=== PATIENT | female | born 1970 | race African-American/Black ===

== ENCOUNTER 2017-11-22 12:16 | Emergency (ER) | payer BC, OTHER ==
[2017-11-22 12:26] VITALS: BP 135/73; PULSE 76; TEMP 98.1; BMI 29.2
[2017-11-22] MEDS ORDERED: ACETAMINOPHEN 1000 MG/100 ML VIAL (NON FORMULARY) IVPB ONE (12:49)
[2017-11-22] MEDS ORDERED: SODIUM CHLORIDE 0.9% 1000 ML INFUS.BAG IV ONE (12:49)
[2017-11-22] MEDS ORDERED: ACETAMINOPHEN INJECTION 100 ML IVPB ONE (12:59)
--- NOTE | 2017-11-22 12:59 | PDOC ---
History of Present Illness - General Chief Complaint: Pain, Acute Stated Complaint: POST OPERATIVE PAIN Time Seen by Provider: 11/22/17 12:20 History Source: Patient Exam Limitations: No Limitations - History of Present Illness Initial Comments: 11/22/17 13:00 47F with no pmh s/p buttock implant surgery, tummy tuck and liposuction [address] George Damon at presents to the ED with increasing abdominal pain since this morning. Took two percocet for pain this morning. Claims that she hasn't had a bowel movement since the operation. No fever, no nausea, no vomiting. Feels sad about the whole situation. No intention of self harm or to others. Past History - Past Medical History Allergies/Adverse Reactions: Allergies Allergy/AdvReac Type Severity Reaction Status Date / Time No Known Allergies Allergy Verified 11/22/17 12:21 Home Medications: Ambulatory Orders Diphenhydramine [Benadryl -] 50 mg PO DAILY PRN #20 capsule 11/22/17 Docusate Sodium [Colace] 100 mg PO BID #30 capsule 11/22/17 Omeprazole 20 mg PO DAILY 11/22/17 Omeprazole 20 mg PO DAILY #20 capsule. 11/22/17 Oxycodone HCl/Acetaminophen [Percocet 5-325 mg Tablet] 1 - 2 tab PO Q4H COPD: No GI Disorders: Yes (GERD) Disorders: Yes (kidney stones) Other medical history: sesonal allergies - Surgical History Abdominal Surgery: Yes (Tummy Tuck) - Immunization History Immunization Up to Date: No - Suicide/Smoking/Psychosocial Hx Smoking History: Never smoked Hx Alcohol Use: No Drug/Substance Use Hx: No Substance Use Type: None Review of Systems - Review of Systems Able to Perform ROS?: Yes Is the patient limited Kyrgyz proficient: No Constitutional: No: Symptoms Reported, See HPI, Chills, Loss of Appetite HEENTM: No: Symptoms Reported Respiratory: No: Symptoms reported Cardiac (ROS): No: Symptoms Reported ABD/GI: Yes: Abdominal Distended, Constipated : No: Symptoms Reported Musculoskeletal: No: Symptoms Reported Integumentary: No: Symptoms Reported Neurological: No: Symptoms reported All Other Systems: Reviewed and Negative *Physical Exam - Vital Signs Last Vital Signs Temp Pulse Resp BP Pulse Ox 98.1 F 76 17 135/73 98 11/22/17 12:23 11/22/17 12:23 11/22/17 12:23 11/22/17 12:23 11/22/17 12:23 - Physical Exam General Appearance: Yes: Nourished, Appropriately Dressed, Mild Distress HEENT: positive: EOMI, YOLIS, Normal ENT Inspection Respiratory/Chest: positive: Lungs Clear, Normal Breath Sounds. negative: Chest Tender, Respiratory Distress Cardiovascular: positive: Regular Rhythm, Regular Rate, S1, S2 Gastrointestinal/Abdominal: positive: Normal Bowel Sounds, Protuberent, Distended (and warm to the touch. Surgical scar well healed. 2 fluid collection bulbs half full of serosanguinous fluids. ) Musculoskeletal: positive: Normal Inspection. negative: CVA Tenderness Extremity: positive: Normal Capillary Refill, Normal Inspection, Normal Range of Motion Integumentary: positive: Normal Color, Dry, Warm Neurologic: positive: Fully Oriented, Alert, Normal Mood/Affect, Normal Response ED Treatment Course - LABORATORY CBC & Chemistry Diagram: 11/22/17 12:50 11/22/17 12:50 *DC/Admit/Observation/Transfer Diagnosis at time of Disposition: Post-operative pain, Constipation - Discharge Dispostion Disposition: HOME Condition at time of disposition: Improved Decision to Admit order: No - Referrals - Patient Instructions Printed Discharge Instructions: DI for Moderate Sedation Additional Instructions: Come back to the ER for any new, worsening or concerning symptoms. Follow up with your appointment on Saturday with your PLastic Surgeon Dr. BRASWELL - Post Discharge Activity
[2017-11-22 13:00] LABS: BASO % 1.1 % (0-2.0); EOS % 3.4 % (0-4.5); HEMATOCRIT 26.5 % (32.4-45.2); HEMOGLOBIN 8.6 GM/dL (10.7-15.3); LYMPH % 20.6 % (8-40); MCH 25.6 pg (25.7-33.7); MCHC 32.3 g/dl (32.0-36.0); MEAN CELL VOLUME 79.2 fl (80-96); MEAN PLT VOLUME 9.1 fl (7.5-11.1); MONO % 7.5 % (3.8-10.2); NEUT % 67.4 % (42.8-82.8); PLATELET COUNT 215 K/MM3 (134-434); RBC 3.35 M/mm3 (3.60-5.2); WHITE BLOOD COUNT 8.3 K/mm3 (4.0-10.0)
[2017-11-22 13:05] LABS: VENOUS PC02 41.3 mmHg (38-52); VENOUS PH 7.42 (7.32-7.42); VENOUS PO2 29.3 mmHg (28-48)
[2017-11-22 13:24] LABS: ANION GAP 7 (8-16); BLOOD UREA NITROGEN 8 mg/dL (7-18); CALCIUM 8.2 mg/dL (8.5-10.1); CHLORIDE 102 mmol/L (98-107); CO2 29 mmol/L (21-32); CREATININE 0.6 mg/dL (0.55-1.02); GLUCOSE,RANDOM 96 mg/dL (74-106); POTASSIUM 3.5 mmol/L (3.5-5.1); SODIUM 138 mmol/L (136-145)
[2017-11-22 14:48] LABS: URINE APPEARANCE CLEAR; URINE BILIRUBIN NEGATIVE (<2.0 mg/dL); URINE COLOR COLORLESS; URINE GLUCOSE (UA) NEGATIVE (NEGATIVE); URINE KETONE 1+ (NEGATIVE); URINE LEUK ESTERASE NEGATIVE (NEGATIVE); URINE NITRITE NEGATIVE (NEGATIVE); URINE PROTEIN NEGATIVE (NEGATIVE); URINE UROBILINOGEN NEGATIVE mg/dL (0.2-1.0)
[2017-11-22] MEDS ORDERED: MAGNESIUM CITRATE 300 ML BOTTLE PO ONE (14:54)
[2017-11-22 14:55] LABS: EPI CELLS RARE /HPF (FEW)
[2017-11-22] MEDS ORDERED: MINERAL OIL ENEMA 133 ML ENEMA PR ONE (14:55)
[2017-11-22] MEDS ORDERED: SODIUM PHOSPHATE/NA BIPHOS 133 ML ENEMA PR ONE (14:59)
[2017-11-22] MEDS ORDERED: MAGNESIUM CITRATE 300 ML BOTTLE ONE (15:04)
--- NOTE | 2017-11-22 16:36 | PDOC ---
Attending Attestation - HPI HPI: 11/22/17 16:38 The patient is a 47 year old Female with no significant past medical history who presents to the emergency department s/p buttock implant surgery, tummy tuck and liposuction [address] George Damon at [facility] with increasing abdominal pain this morning. She reportedly took two percocet for pain this morning with little to no relief. She states she has not had a BM since her surgery. The patient denies chest pain, shortness of breath, headache and dizziness. The patient denies fever, chills, nausea, vomit, diarrhea and constipation. The patient denies dysuria, frequency, urgency and hematuria. Allergies: NKDA - Physicial Exam PE: 11/22/17 16:38 ROS: A complete review of 10 out of 10 review of systems is taken and is negative apart from what is previously mentioned below and in the HPI. Vitals: Triage vital signs reviewed General Appearance: No acute distress, well nourished, well developed Head: Atraumatic Eyes: Pupils equal reactive round, extraocular movement intact Neck: Supple; No nuchal rigidity Chest Wall: Nontender Cardiac: Regular rate and rhythm, no murmurs, no rubs, no gallops Lungs: Clear to auscultation bilateral, good air movement bilaterally Abdomen: +diffuse abdominal tenderness. +Well healing surgical sites with serosanguinous discharge from her two pouches. Soft, nondistended, normal bowel sounds, to palpation Rectal: Exam deferred Extremities: Full range of motion to all extremities, no cyanosis, clubbing, or edema Skin: Warm and dry, no rashes or lesions, no rash, no petechiae Neuro: AOX3; Cranial Nerves 2-12 grossly intact, Strength intact to all extremities, Sensation intact to all extremities, gait normal Psych: Normal mood, normal affect - Medical Decision Making 11/22/17 16:38 The patient is a 47 year old Female who presents to the emergency department s/ p buttock implant surgery, tummy tuck and liposuction [address] George Damon at [facility] with increasing abdominal pain this morning. She denies any other past medical history. <Vy Crum - Last Filed: 11/22/17 16:37> - Resident Resident Name: Jad Jhaveri - ED Attending Attestation I have performed the following: I have examined & evaluated the patient, The case was reviewed & discussed with the resident, I agree w/resident's findings & plan, Exceptions are as noted - Medical Decision Making 11/22/17 16:35 Progressively worsening abdominal pain status post tummy tuck liposuction approximately 5 days ago done in [place] Patient feels her stomach is distended however she has also not had a bowel movement in the last 5 days and has not been taking stool softeners We'll check labs KUB bowel regimen observe and reassess Reevaluation 4:30. Patient had one bowel movement but still complaining of abdominal discomfort At this point given persistent abdominal discomfort in a postoperative patient will perform a CAT scan with IV contrast Dr. Tucker to follow up results and dispo. <Karlos Obando - Last Filed: 11/22/17 16:53>
[2017-11-22] MEDS ORDERED: SODIUM CHLORIDE 1,000 ML IV STA (19:02)
[2017-11-22] MEDS ORDERED: morphine CARPU-JECT 4 MG/1 ML DISP.SYRIN IVPUSH ONE (19:27)
[2017-11-22] MEDS ORDERED: morphine SULFATE 4 MG/ML VIAL ONE (19:44)
== END 2017-11-22 20:01 | disposition home or self-care (01) ==
LOC: JER 12:16
PROC: 3E033NZ Introduction of Analgesics, Hypnotics, Sedatives into Peripheral Vein, Percutaneous Approach (ICD-10-PCS; principal; 2017-11-22)
PROC: 3E033NZ Introduction of Analgesics, Hypnotics, Sedatives into Peripheral Vein, Percutaneous Approach (ICD-10-PCS; 2017-11-22)
DX: G89.18 Other acute postprocedural pain (principal); Z98.890 Other specified postprocedural states; K59.00 Constipation, unspecified; K21.9 Gastro-esophageal reflux disease without esophagitis; J30.2 Other seasonal allergic rhinitis
CPT/HCPCS: 36415; 74018-TC-FY; 74177-TC; 80048; 81003; 81015; 82803; 83605; 85025; 87040; 87086; 99283-25; J0131; J7030

== ENCOUNTER 2020-12-15 07:05 | Emergency (ER) | payer BC, OTHER ==
[2020-12-15 07:19] VITALS: BMI 29.5
[2020-12-15] MEDS ORDERED: ALBUTEROL SO4 2.5/IPRATROPIUM 0.5 INH SOL 3 ML VIAL.NEB. NEB ONE ×2 (07:47→08:01)
[2020-12-15] MEDS ORDERED: SODIUM CHLORIDE 1,000 ML IV STA (07:55)
[2020-12-15] MEDS ORDERED: ACETAMINOPHEN INJECTION 100 ML IVPB ONE (08:03)
[2020-12-15] MEDS ORDERED: ACETAMINOPHEN 1000 MG/100 ML VIAL (NON FORMULARY) IVPB ONE (08:33)
[2020-12-15 08:36] LABS: BASO % 0.8 % (0-2.0); EOS % 0.1 % (0-4.5); HEMOGLOBIN 11.4 GM/dL (10.7-15.3); LYMPH % 34.7 % (8-40); MCH 28.4 pg (25.7-33.7); MCHC 33.5 g/dl (32.0-36.0); MEAN PLT VOLUME 9.4 fl (7.5-11.1); MONO % 8.6 % (3.8-10.2); NEUT % 55.8 % (42.8-82.8); PLATELET COUNT 165 10^3/uL (134-434); WHITE BLOOD COUNT 8.8 K/mm3 (4.0-10.0)
[2020-12-15 08:54] LABS: CHLORIDE 103 mmol/L (98-107); SODIUM 139 mmol/L (136-145)
[2020-12-15 08:56] LABS: CALCIUM 8.4 mg/dL (8.5-10.1)
[2020-12-15 08:57] LABS: ALBUMIN 3.3 g/dl (3.4-5.0); ANION GAP 6 MMOL/L (8-16); BLOOD UREA NITROGEN 9.4 mg/dL (7-18); CO2 31 mmol/L (21-32); GLUCOSE,RANDOM 89 mg/dL (74-106); MAGNESIUM 2.1 mg/dL (1.8-2.4)
[2020-12-15 09:00] LABS: CREATININE 0.8 mg/dL (0.55-1.3); SGOT/AST 23 U/L (15-37); SGPT/ALT 24 U/L (13-61)
[2020-12-15 09:01] LABS: BILIRUBIN,TOTAL 0.2 mg/dL (0.2-1); TOT PROT 7.4 g/dl (6.4-8.2)
[2020-12-15 09:03] LABS: ALK PHOS 52 U/L (45-117)
[2020-12-15 11:42] VITALS: BP 135/72; PULSE 102; TEMP 98.9
== END 2020-12-15 11:40 | disposition home or self-care (01) ==
LOC: JER 07:05
PROC: 3E033NZ Introduction of Analgesics, Hypnotics, Sedatives into Peripheral Vein, Percutaneous Approach (ICD-10-PCS; principal; 2020-12-15)
PROC: 3E0337Z Introduction of Electrolytic and Water Balance Substance into Peripheral Vein, Percutaneous Approach (ICD-10-PCS; 2020-12-15)
DX: U07.1 COVID-19 (principal); R06.02 Shortness of breath
CPT/HCPCS: 36415; 71045-TC-FY; 80053; 82550; 82553; 83735; 84484; 85025; 93005; 93010; 99284-25; J0131

== ENCOUNTER 2022-04-16 02:02 | Emergency (ER) | payer OTHER ==
[2022-04-16 02:36] VITALS: BP 128/59; PULSE 80; RESP 18; TEMP 98.3; BMI 34.9
[2022-04-16 03:45] LABS: CALCIUM 9.6 mg/dL (8.5-10.1)
[2022-04-16 03:46] LABS: ALBUMIN 3.4 g/dl (3.4-5.0); BLOOD UREA NITROGEN 14.7 mg/dL (7-18)
[2022-04-16 03:49] LABS: CREATININE 0.8 mg/dL (0.55-1.3)
[2022-04-16 03:50] LABS: BILIRUBIN,TOTAL 0.2 mg/dL (0.2-1)
[2022-04-16 03:51] LABS: TOT PROT 7.4 g/dl (6.4-8.2)
[2022-04-16 04:23] LABS: BASO % 0.9 % (0-2.0); EOS % 2.5 % (0-4.5); HEMATOCRIT 36.9 % (32.4-45.2); HEMOGLOBIN 11.9 GM/dL (10.7-15.3); LYMPH % 47.9 % (8-40); MCH 26.7 pg (25.7-33.7); MCHC 32.3 g/dl (32.0-36.0); MEAN CELL VOLUME 82.6 fl (80-96); MONO % 7.2 % (3.8-10.2); NEUT % 41.5 % (42.8-82.8); PLATELET COUNT 259 10^3/uL (134-434); RBC 4.46 M/mm3 (3.60-5.2); RDW 13.9 % (11.6-15.6); WHITE BLOOD COUNT 8.8 K/mm3 (4.0-10.0)
== END 2022-04-16 04:42 | disposition home or self-care (01) ==
LOC: JER 02:02
DX: R07.9 Chest pain, unspecified (principal)
CPT/HCPCS: 36415; 71045-TC-FY; 80053; 84484; 84703; 85025; 93005; 93010; 99285-25

== ENCOUNTER 2023-02-14 20:54 | Emergency (ER) | payer OTHER ==
[2023-02-14 21:01] VITALS: BP 122/69; PULSE 91; RESP 18; TEMP 98; BMI 31.3
== END 2023-02-14 21:36 | disposition home or self-care (01) ==
LOC: JERFT 20:54
DX: R09.81 Nasal congestion (principal); R05.9 Cough, unspecified; R11.0 Nausea
CPT/HCPCS: 99283-25

== ENCOUNTER 2023-10-11 21:44 | Emergency (ER) | payer OTHER ==
[2023-10-11 21:50] VITALS: BP 130/58; PULSE 74; RESP 18; TEMP 98.3; BMI 31.0
[2023-10-11] MEDS: METOCLOPRAMIDE HCL INJECTION 10 MG/2 ML VIAL IM ONE (23:49)
[2023-10-11] MEDS: SODIUM CHLORIDE 1,000 ML IV STA (23:49)
[2023-10-11] MEDS: ACETAMINOPHEN 1000 MG/100 ML BAG IVPB ONE (23:49)
[2023-10-11] MEDS: METOCLOPRAMIDE HCL INJECTION 10 MG/2 ML VIAL IVPUSH ONE (23:49)
[2023-10-11] MEDS ORDERED: ACETAMINOPHEN 325 MG TABLET (FP) ONE (23:50)
[2023-10-11] MEDS: ACETAMINOPHEN 325 MG TABLET (FP) PO ONE (23:51)
[2023-10-12] MEDS ORDERED: DEXAMETHASONE SOD PHOSPHATE 10 MG/1 ML VIAL ONE (02:00)
[2023-10-12] MEDS: DEXAMETHASONE SOD PHOSPHATE 10 MG/1 ML VIAL IVPUSH ONE (02:11)
== END 2023-10-12 02:42 | disposition home or self-care (01) ==
LOC: JER 21:44
PROC: 3E033GC Introduction of Other Therapeutic Substance into Peripheral Vein, Percutaneous Approach (ICD-10-PCS; principal; 2023-10-12)
DX: J32.9 Chronic sinusitis, unspecified (principal)
CPT/HCPCS: 70450-TC; 70486-TC; 84703; 99284-25; J1100

== ENCOUNTER 2023-10-13 16:08 | Emergency (ER) | payer OTHER ==
[2023-10-13 16:26] VITALS: BP 125/84; PULSE 69; RESP 19; TEMP 98.2; BMI 29.5
[2023-10-13] MEDS ORDERED: KETOROLAC TROMETHAMINE 15 MG/ML VIAL ONE (17:30)
[2023-10-13] MEDS ORDERED: ACETAMINOPHEN INJECTION 100 ML IVPB ONE (17:30)
[2023-10-13] MEDS: ACETAMINOPHEN 1000 MG/100 ML BAG IVPB ONE (18:03)
[2023-10-13] MEDS: KETOROLAC TROMETHAMINE 15 MG/ML VIAL IVPUSH ONE (18:04)
== END 2023-10-13 18:39 | disposition home or self-care (01) ==
LOC: JER 16:08
PROC: 3E033GC Introduction of Other Therapeutic Substance into Peripheral Vein, Percutaneous Approach (ICD-10-PCS; principal; 2023-10-13)
PROC: 3E033NZ Introduction of Analgesics, Hypnotics, Sedatives into Peripheral Vein, Percutaneous Approach (ICD-10-PCS; 2023-10-13)
PROC: 3E0333Z Introduction of Anti-inflammatory into Peripheral Vein, Percutaneous Approach (ICD-10-PCS; 2023-10-13)
DX: R51.9 Headache, unspecified (principal); J34.89 Other specified disorders of nose and nasal sinuses
CPT/HCPCS: 99284-25; J0131

== ENCOUNTER 2024-01-17 14:14 | Emergency (ER) | payer OTHER ==
[2024-01-17 14:26] VITALS: BP 127/81; PULSE 82; RESP 16; TEMP 98.4
[2024-01-17] MEDS ORDERED: AZITHROMYCIN 500 MG TABLET ONE (16:35)
[2024-01-17] MEDS ORDERED: predniSONE 20 MG TABLET (UD) ONE (16:35)
[2024-01-17] MEDS ORDERED: PSEUDOEPHEDRINE HCL 60 MG TABLET ONE (16:35)
[2024-01-17] MEDS: PSEUDOEPHEDRINE HCL 60 MG TABLET PO ONE (16:39)
[2024-01-17] MEDS: AZITHROMYCIN 500 MG TABLET PO ONE (16:39)
[2024-01-17] MEDS: predniSONE 20 MG TABLET (UD) PO ONE (16:39)
== END 2024-01-17 17:25 | disposition home or self-care (01) ==
LOC: JER 14:14 → JERFT 14:14
DX: J01.90 Acute sinusitis, unspecified (principal); R51.9 Headache, unspecified; R05.9 Cough, unspecified; Z20.822 Contact with and (suspected) exposure to COVID-19
CPT/HCPCS: 0241U-QW; 99283-25

== ENCOUNTER 2024-05-01 21:52 | Emergency (ER) | payer OTHER ==
[2024-05-01 21:58] VITALS: BP 132/84; TEMP 97.7; BMI 30.5
[2024-05-01 22:02] VITALS: PULSE 62; RESP 20
== END 2024-05-02 00:06 | disposition home or self-care (01) ==
LOC: JER 21:52
DX: J32.9 Chronic sinusitis, unspecified (principal); B97.4 Respiratory syncytial virus as the cause of diseases classified elsewhere; Z20.822 Contact with and (suspected) exposure to COVID-19
CPT/HCPCS: 0241U-QW; 99283-25